=== PATIENT | male | born 1955 | race Caucasian/White ===

== ENCOUNTER 2023-03-28 09:22 | Outpatient (CLI) | payer OTHER | END 2023-03-28 09:36 | disposition home or self-care (01) | LOC: MRI 09:22 | PROVIDERS: ATTEND Orthopaedic Surgery | DX: S83.200A Bucket-handle tear of unspecified meniscus, current injury, right knee, initial encounter (principal); S83.201A Bucket-handle tear of unspecified meniscus, current injury, left knee, initial encounter | CPT/HCPCS: 73718 ==